=== PATIENT | male | born 1980 | race Caucasian/White ===

== ENCOUNTER → 2019-11-05 | Outpatient (CLI) | payer OTHER ==
[~2019-11-05] MED LIST: BLEPH-105 ML OPHTHALMIC; NOHOMEMEDICATIONS; POLYMYXIN B/TMP10 ML OP; TRAMADOL 50 MG50 MG PO
== END ==
LOC: M.CT 13:42
PROVIDERS: ATTEND Nurse Practitioner Family
DX: Z13.6 Encounter for screening for cardiovascular disorders (principal)